=== PATIENT | female | born 1985 | race Two or more races ===

== ENCOUNTER 2020-09-29 08:51 | Emergency (ER) | payer OTHER ==
[~2020-09-29] VITALS: Ht 170.2 cm; Wt 90.7 kg
[2020-09-29] MEDS ORDERED: ZYRTEC10 M3 PO (09:12)
[2020-09-29] MEDS ORDERED: PRENATE ELITE1 EAC2 PO (09:12)
== END 2020-09-29 17:54 | disposition home or self-care (01) ==
LOC: ER 08:51
DX: O26.891 Other specified pregnancy related conditions, first trimester (principal); I31.9 Disease of pericardium, unspecified; R07.89 Other chest pain; Z3A.11 11 weeks gestation of pregnancy; Z03.818 Encounter for observation for suspected exposure to other biological agents ruled out

== ENCOUNTER 2020-11-10 14:36 | Emergency (ER) | payer OTHER ==
[~2020-11-10] VITALS: Ht 170.2 cm; Wt 88.5 kg
[~2020-11-10 14:36] MED LIST: PRENATE ELITE1 EAC2 PO; ZYRTEC10 M3 PO
== END 2020-11-10 21:28 | disposition home or self-care (01) ==
LOC: ER 14:36
DX: O20.0 Threatened abortion (principal)

== ENCOUNTER 2021-02-13 01:50 | Inpatient (IN) | payer OTHER ==
[~2021-02-13] VITALS: Ht 170.2 cm; Wt 95.3 kg
[2021-02-13] MEDS ORDERED: FOLIC ACID0.8 M1 PO (02:56)
[2021-02-13] MEDS ORDERED: MAGNESIUM OXID250 MG PO (02:57)
== END 2021-02-14 14:20 | disposition home or self-care (01) | DRG 832 ==
LOC: OBS/DEL 01:50 → LDR 21:43
PROVIDERS: ADMIT Obstetrics & Gynecology; ATTEND Obstetrics & Gynecology
PROC: 4A1HXFZ Monitoring of Products of Conception, Cardiac Rhythm, External Approach (ICD-10-PCS; principal; 2021-02-13)
DX: O99.413 Diseases of the circulatory system complicating pregnancy, third trimester (principal); I31.9 Disease of pericardium, unspecified; Z3A.31 31 weeks gestation of pregnancy; Z20.822 Contact with and (suspected) exposure to COVID-19

== ENCOUNTER 2021-04-03 15:30 | Inpatient (IN) | payer OTHER ==
[~2021-04-03] VITALS: Ht 170.2 cm; Wt 99.8 kg
[~2021-04-03 15:30] MED LIST changes: +FOLIC ACID0.8 M1 PO; +MAGNESIUM OXID250 MG PO
[2021-04-22] MEDS ORDERED: IRON325 MG PO (01:17)
== END 2021-04-25 18:08 | disposition home or self-care (01) | DRG 807 ==
LOC: OB/GYN 04-14 15:30 → LDR 04-22 08:38 → SURG-SUITE 04-23 19:11
PROVIDERS: ADMIT Obstetrics & Gynecology; ATTEND Obstetrics & Gynecology
PROC: 4A1HXFZ Monitoring of Products of Conception, Cardiac Rhythm, External Approach (ICD-10-PCS; 2021-04-22)
PROC: 10E0XZZ Delivery of Products of Conception, External Approach (ICD-10-PCS; principal; 2021-04-23)
PROC: 0W8NXZZ Division of Female Perineum, External Approach (ICD-10-PCS; 2021-04-23)
PROC: 10907ZC Drainage of Amniotic Fluid, Therapeutic from Products of Conception, Via Natural or Artificial Opening (ICD-10-PCS; 2021-04-23)
PROC: 3E0P7VZ Introduction of Hormone into Female Reproductive, Via Natural or Artificial Opening (ICD-10-PCS; 2021-04-23)
DX: O48.0 Post-term pregnancy (principal); Z37.0 Single live birth; Z3A.41 41 weeks gestation of pregnancy; Z20.822 Contact with and (suspected) exposure to COVID-19

== ENCOUNTER 2021-04-22 00:56 | Outpatient (CLI) | payer OTHER ==
[2021-04-22] MEDS ORDERED: IRON325 MG PO (01:17)
== END 2021-04-22 09:06 | disposition still patient (30) ==
LOC: OBS/DEL 00:56
PROVIDERS: ATTEND Obstetrics & Gynecology
DX: O48.0 Post-term pregnancy (principal); Z3A.41 41 weeks gestation of pregnancy

== ENCOUNTER 2022-12-18 14:18 | Inpatient (IN) | payer OTHER ==
[~2022-12-18] VITALS: Ht 170.2 cm; Wt 99.8 kg
[~2022-12-18 14:18] MED LIST changes: +IRON325 MG PO
--- NOTE | 2022-12-18 14:29 | NUR ---
PTE EMBARAZADA DE 32 SEMANAS DEL LA DRA VIVEROS, PTE REFIERE QUE TIENE DOLOR DE PECHO MOLESTIA A LA PALPACION SE OBSERVA PTE ANSIOSA SE UBICA PTE EN AREA DE OBSERVACION Y SE REALIZA EKG.
--- NOTE | 2022-12-18 15:23 | NUR ---
SE RECIBE PTE ALERTA Y ESTABLE X3 SE LE REALIZAN VITALES Y SE LE EDUCA SOBRE EL PROCESO A SEGUIR EN EL AREA LA MISMA REFIERE ENTENDER.
--- NOTE | 2022-12-18 15:45 | NUR ---
PTE FEMENINA EVALUADA POR . SE ORIENTA SOBRE ORDENES DE [place] REFIERE COMPRENDER. SE COLECTAN MUESTRAS DE LABORATORIOS Y SE CANALIZA VENA BAJO MEDIDAS ASEPTICAS. SE ADMINISTRA MEDICAMENTOS, BAJO MEDIDAS ASETICAS. SE NOTIFICA A PERSONAL DE NUCLEAR ESTUDIO PENDIENTE. SE ENTREGA ENVASE PARA COLECCION DE U/A Y SE ORIENTA.
== END 2022-12-19 19:05 | disposition home or self-care (01) | DRG 833 ==
LOC: ER 14:18 → OB/GYN 16:02
PROVIDERS: ADMIT Student in an Organized Health Care Education/Training Program; ATTEND Student in an Organized Health Care Education/Training Program
PROC: 4A1HXCZ Monitoring of Products of Conception, Cardiac Rate, External Approach (ICD-10-PCS; principal; 2022-12-18)
PROC: B246ZZZ Ultrasonography of Right and Left Heart (ICD-10-PCS; 2022-12-18)
DX: O26.892 Other specified pregnancy related conditions, second trimester (principal); R07.89 Other chest pain; Z3A.23 23 weeks gestation of pregnancy; Z20.822 Contact with and (suspected) exposure to COVID-19

== ENCOUNTER 2022-12-21 22:18 | Emergency (ER) | payer OTHER ==
[~2022-12-21] VITALS: Ht 170.2 cm; Wt 99.8 kg
[2022-12-21] MEDS ORDERED: TYLENOL325 MG (22:27)
[2022-12-22] MEDS ORDERED: MEDROLPACK PO (02:26)
== END 2022-12-22 02:34 | disposition home or self-care (01) ==
LOC: ER 22:18
DX: O26.892 Other specified pregnancy related conditions, second trimester (principal); Z3A.23 23 weeks gestation of pregnancy; Z88.0 Allergy status to penicillin; M94.0 Chondrocostal junction syndrome [Tietze]

== ENCOUNTER 2023-02-22 13:49 | Outpatient (CLI) | payer OTHER ==
[~2023-02-22 13:49] MED LIST changes: +MEDROLPACK PO; +TYLENOL325 MG
[2023-02-22] MEDS ORDERED: FLAGYL375 MG PO (14:41)
== END 2023-02-22 20:31 | disposition home or self-care (01) ==
LOC: OBS/DEL 13:49
PROVIDERS: ATTEND Student in an Organized Health Care Education/Training Program
DX: O26.893 Other specified pregnancy related conditions, third trimester (principal); Z3A.32 32 weeks gestation of pregnancy; W10.0XXA Fall (on)(from) escalator, initial encounter; Y93.89 Activity, other specified; Y92.89 Other specified places as the place of occurrence of the external cause; Y99.8 Other external cause status; Z88.6 Allergy status to analgesic agent

== ENCOUNTER 2023-03-20 17:19 | Outpatient (CLI) | payer OTHER ==
[~2023-03-20 17:19] MED LIST changes: +FLAGYL375 MG PO
[2023-03-20] MEDS ORDERED: MAGNESIUM200 MG PO (17:38)
[2023-03-20] MEDS ORDERED: HUMULIN N100 UNIT/2 SUBCUTANEO (17:38)
== END 2023-03-21 17:35 | disposition home or self-care (01) ==
LOC: OBS/DEL 17:19
PROVIDERS: ATTEND Obstetrics & Gynecology
DX: O24.419 Gestational diabetes mellitus in pregnancy, unspecified control (principal); O09.523 Supervision of elderly multigravida, third trimester; O36.8330 Maternal care for abnormalities of the fetal heart rate or rhythm, third trimester, not applicable or unspecified; O98.513 Other viral diseases complicating pregnancy, third trimester; B33.8 Other specified viral diseases; Z3A.36 36 weeks gestation of pregnancy; Z88.6 Allergy status to analgesic agent

== ENCOUNTER 2023-04-04 15:30 | Inpatient (IN) | payer OTHER ==
[~2023-04-04] VITALS: Ht 170.2 cm; Wt 80.7 kg
[~2023-04-04 15:30] MED LIST changes: +HUMULIN N100 UNIT/2 SUBCUTANEO; +MAGNESIUM200 MG PO
== END 2023-04-12 13:45 | disposition home or self-care (01) | DRG 807 ==
LOC: OB/GYN 04-10 04:53 → LDR 04-10 04:53 → OB/GYN 04-10 10:53
PROVIDERS: ADMIT Obstetrics & Gynecology; ATTEND Obstetrics & Gynecology
PROC: 10E0XZZ Delivery of Products of Conception, External Approach (ICD-10-PCS; principal; 2023-04-10)
PROC: 0HQ9XZZ Repair Perineum Skin, External Approach (ICD-10-PCS; 2023-04-10)
PROC: 4A1HXCZ Monitoring of Products of Conception, Cardiac Rate, External Approach (ICD-10-PCS; 2023-04-10)
DX: O70.0 First degree perineal laceration during delivery (principal); Z37.0 Single live birth; Z3A.39 39 weeks gestation of pregnancy; Z20.822 Contact with and (suspected) exposure to COVID-19